=== PATIENT | female | born 1990 ===

== ENCOUNTER 2019-02-08 13:59 | Inpatient (IN) | payer OTHER ==
[~2019-02-08] VITALS: Ht 170.2 cm; Wt 67.6 kg
[2019-02-10] MEDS ORDERED: Dermoplast SPRAY TOP (10:44)
[2019-02-10] MEDS ORDERED: PREPLUS CA-FE1 EACH PO (10:44)
[2019-02-10] MEDS ORDERED: Tylenol Extra Streng PO (10:44)
[2019-02-10] MEDS ORDERED: DOCUSATE SODIU100 MG PO (10:44)
== END 2019-02-10 12:43 | disposition home or self-care (01) | DRG 807 ==
LOC: LDR 13:59 → OB/GYN 13:59
PROVIDERS: ADMIT Obstetrics & Gynecology
PROC: 10E0XZZ Delivery of Products of Conception, External Approach (ICD-10-PCS; principal; 2019-02-08)
PROC: 0W8NXZZ Division of Female Perineum, External Approach (ICD-10-PCS; 2019-02-08)
PROC: 3E033VJ Introduction of Other Hormone into Peripheral Vein, Percutaneous Approach (ICD-10-PCS; 2019-02-08)
PROC: 4A1HXCZ Monitoring of Products of Conception, Cardiac Rate, External Approach (ICD-10-PCS; 2019-02-08)
DX: O80 Encounter for full-term uncomplicated delivery (principal); Z37.0 Single live birth; Z3A.38 38 weeks gestation of pregnancy